=== PATIENT | female | born 1985 | race Caucasian/White ===

== ENCOUNTER → 2022-03-13 08:04 | Outpatient (CLI) | payer OTHER, MEDICAID, SELFPAY ==
[2022-03-13 09:26] LABS: Add Manual Diff / Slide Review NO; Basophils Absolute Auto 0 /uL (0-100); Basophils Percent Auto 0.8 % (0-2); Eosinophils Absolute Auto 500 /uL (0-450); Eosinophils Percent Auto 8.2 % (2-4); Hematocrit 36.6 % (36-46); Hemoglobin 12.5 g/dL (12.0-16.0); Lymphocytes Absolute Auto 1700 /uL (1100-4500); Lymphocytes Percent Auto 29.8 % (25-40); Mean Corpuscular HGB Conc 34.3 % (30-36); Mean Corpuscular Hemoglobin 30.2 PG (26-34); Monocytes Absolute Auto 300 /uL (0-900); Monocytes Percent Auto 4.7 % (3-14); Neutrophils Absolute Auto 3300 /uL (1500-7000); Neutrophils Percent Auto 56.5 % (50-75); Platelet Count 223 X10^3/uL (150-400); Red Blood Cell Count 4.15 X10^6/uL (4.0-5.2); White Blood Cell Count 5.8 X10^3/uL (4.5-11.0)
[2022-03-13 09:48] LABS: Alanine Aminotransferase 20 IU/L (<35); Albumin 4.2 g/dL (3.5-5.0); Albumin Globulin Ratio 1.6 (1.0-2.8); Alkaline Phosphatase 45 U/L (38-126); Aspartate Aminotransferase 27 IU/L (14-36); BUN Creatinine Ratio 14.9 (6-22); Bilirubin Total 0.6 mg/dL (0.2-1.3); Blood Urea Nitrogen 11 mg/dL (7-17); Carbon Dioxide 28 mmol/L (22-32); Chloride 102 mmol/L (98-107); Cholesterol 162 mg/dL (140-199); Estimated Glomerular Filt Rate > 60 mL/min (>60); Globulin 2.6 g/dL (1.7-4.1); Glucose 90 mg/dL (70-100); HDL Cholesterol 71 mg/dL (40-60); HEMOLYSIS < 15 (0-50); LDL Cholesterol Calculated 78 mg/dL (<100); Potassium 3.6 mmol/L (3.4-5.1); Sodium 140 mmol/L (137-145); Total Protein 6.8 g/dL (6.3-8.2); Triglycerides 66 mg/dL (35-150)
[2022-03-13 10:05] LABS: Progesterone, Total 1.04 ng/mL
[2022-03-13 10:06] LABS: Prolactin 26.8 ng/mL (3.0-18.6)
[2022-03-13 10:21] LABS: Estradiol, Total 233.3 pg/mL; Thyroid Stimulating Hormone 2.34 uIU/mL (0.47-4.68)
[2022-03-13 10:24] LABS: Ferritin 20 ng/mL (6-137)
== END ==
PROVIDERS: PCP Naturopath; Referring Provider Naturopath; Visit Provider Naturopath
DX: Z00.00 Encounter for general adult medical examination without abnormal findings (principal); N92.6 Irregular menstruation, unspecified; R53.83 Other fatigue
CPT/HCPCS: 36415; 80053; 80061; 82627; 82670; 82728; 84144; 84146; 84443; 85025

== ENCOUNTER → 2022-07-02 07:49 | Outpatient (CLI) | payer OTHER, MEDICAID, SELFPAY ==
[2022-07-02 09:21] LABS: Add Manual Diff / Slide Review NO; Basophils Absolute Auto 100 /uL (0-100); Eosinophils Absolute Auto 500 /uL (0-450); Eosinophils Percent Auto 8.5 % (2-4); Hematocrit 39.6 % (36-46); Hemoglobin 13.5 g/dL (12.0-16.0); Lymphocytes Absolute Auto 2300 /uL (1100-4500); Lymphocytes Percent Auto 41.3 % (25-40); Mean Corpuscular Hemoglobin 29.7 PG (26-34); Mean Corpuscular Volume 87.3 fL (80-100); Monocytes Absolute Auto 400 /uL (0-900); Monocytes Percent Auto 7.9 % (3-14); Neutrophils Absolute Auto 2300 /uL (1500-7000); Neutrophils Percent Auto 41.3 % (50-75); Platelet Count 206 X10^3/uL (150-400); Red Blood Cell Count 4.53 X10^6/uL (4.0-5.2); Red Cell Distribution Width 12.8 % (11.6-14.8); White Blood Cell Count 5.7 X10^3/uL (4.5-11.0)
[2022-07-02 09:47] LABS: Alanine Aminotransferase 18 IU/L (<35); Albumin 4.2 g/dL (3.5-5.0); Albumin Globulin Ratio 1.6 (1.0-2.8); Alkaline Phosphatase 45 U/L (38-126); Aspartate Aminotransferase 25 IU/L (14-36); BUN Creatinine Ratio 19.4 (6-22); Bilirubin Total 0.7 mg/dL (0.2-1.3); Blood Urea Nitrogen 13 mg/dL (7-17); Calcium 9.2 mg/dL (8.4-10.2); Carbon Dioxide 26 mmol/L (22-32); Chloride 104 mmol/L (98-107); Estimated Glomerular Filt Rate > 60 mL/min (>60); Globulin 2.7 g/dL (1.7-4.1); Glucose 94 mg/dL (70-100); HEMOLYSIS < 15 (0-50); Potassium 4.3 mmol/L (3.4-5.1); Sodium 139 mmol/L (137-145); Total Protein 6.9 g/dL (6.3-8.2)
[2022-07-02 10:00] LABS: Free T3, Triiodothyronine Free 3.64 pg/mL (2.77-5.27); Free T4, Direct Thyroxine 1.11 ng/dL (0.78-2.19); Prolactin 30.9 ng/mL (3.0-18.6)
[2022-07-02 10:12] LABS: Estradiol, Total 130.5 pg/mL
[2022-07-02 10:13] LABS: Cortisol AM (Before 10AM) 14.3 ug/dL (4.46-22.7)
[2022-07-02 10:14] LABS: Thyroid Stimulating Hormone 2.17 uIU/mL (0.47-4.68)
[2022-07-02 10:17] LABS: Ferritin 21 ng/mL (6-137)
== END ==
PROVIDERS: PCP Naturopath; Referring Provider Naturopath; Visit Provider Naturopath
DX: N92.6 Irregular menstruation, unspecified (principal); R53.83 Other fatigue; E22.1 Hyperprolactinemia
CPT/HCPCS: 36415; 80053; 82533; 82627; 82670; 82728; 84146; 84439; 84443; 84481; 85025

== ENCOUNTER → 2023-01-25 09:15 | Outpatient (CLI) | payer OTHER, MEDICAID, SELFPAY ==
[2023-01-25 11:25] LABS: Add Manual Diff / Slide Review NO; Basophils Absolute Auto 0 /uL (0-100); Basophils Percent Auto 0.9 % (0-2); Eosinophils Absolute Auto 400 /uL (0-450); Eosinophils Percent Auto 6.9 % (2-4); Hematocrit 41.2 % (36-46); Hemoglobin 13.9 g/dL (12.0-16.0); Lymphocytes Absolute Auto 1700 /uL (1100-4500); Lymphocytes Percent Auto 32.4 % (25-40); Mean Corpuscular HGB Conc 33.7 % (30-36); Mean Corpuscular Hemoglobin 29.8 PG (26-34); Mean Corpuscular Volume 88.4 fL (80-100); Monocytes Absolute Auto 400 /uL (0-900); Monocytes Percent Auto 7.6 % (3-14); Neutrophils Absolute Auto 2700 /uL (1500-7000); Neutrophils Percent Auto 52.2 % (50-75); Platelet Count 218 X10^3/uL (150-400); Red Blood Cell Count 4.67 X10^6/uL (4.0-5.2); Red Cell Distribution Width 12.9 % (11.6-14.8); White Blood Cell Count 5.2 X10^3/uL (4.5-11.0)
[2023-01-25 11:32] LABS: Alanine Aminotransferase 36 IU/L (<35); Albumin 4.7 g/dL (3.5-5.0); Albumin Globulin Ratio 1.4 (1.0-2.8); Alkaline Phosphatase 49 U/L (38-126); Aspartate Aminotransferase 39 IU/L (14-36); BUN Creatinine Ratio 19.1 (6-22); Bilirubin Total 0.5 mg/dL (0.2-1.3); Blood Urea Nitrogen 13 mg/dL (7-17); Calcium 9.4 mg/dL (8.4-10.2); Carbon Dioxide 26 mmol/L (22-32); Chloride 102 mmol/L (98-107); Estimated Glomerular Filt Rate > 60 mL/min (>60); Globulin 3.3 g/dL (1.7-4.1); Glucose 97 mg/dL (70-100); HEMOLYSIS < 15 (0-50); Potassium 3.9 mmol/L (3.4-5.1); Sodium 138 mmol/L (137-145)
[2023-01-25 11:44] LABS: Prolactin 13.3 ng/mL (3.0-18.6)
[2023-01-25 11:59] LABS: Estradiol, Total 106.2 pg/mL
[2023-01-25 12:02] LABS: Ferritin 27 ng/mL (6-137)
[2023-01-25 12:21] LABS: Thyroid Stimulating Hormone 1.01 uIU/mL (0.47-4.68)
== END ==
PROVIDERS: PCP Naturopath; Referring Provider Naturopath; Visit Provider Naturopath
DX: Z00.00 Encounter for general adult medical examination without abnormal findings (principal); N92.6 Irregular menstruation, unspecified; E22.1 Hyperprolactinemia; R53.83 Other fatigue
CPT/HCPCS: 36415; 80053; 82627; 82670; 82728; 84144; 84146; 84443; 85025

== ENCOUNTER → 2023-09-21 15:57 | Outpatient (CLI) | payer OTHER, MEDICAID, SELFPAY ==
--- NOTE | 2023-09-21 | DI.MG.S_ITS ---
BILATERAL DIGITAL SCREENING MAMMOGRAM 3D/2D WITH CAD: 09/21/2023 CLINICAL: Baseline exam. Routine screening. No prior exams were available for comparison. Both breasts are heterogeneously dense, which may obscure small masses (category c / 51-75% glandular tissue). Current study was also evaluated with a Computer Aided Detection (CAD) system. There is an oval asymmetry with an indistinct and circumscribed margin in the right breast anterior depth central to the nipple seen on the craniocaudal view only. There also is a round asymmetry with a circumscribed margin in the right breast middle depth medial region seen on the craniocaudal view only. There is an oval asymmetry with an indistinct and circumscribed margin in the left breast at 1 o'clock middle depth. No other significant masses or calcifications are seen in either breast. IMPRESSION: INCOMPLETE: NEEDS ADDITIONAL IMAGING EVALUATION The oval asymmetry in the right breast anterior depth central to the nipple seen on the craniocaudal view only is indeterminate. Additional views with possible ultrasound are recommended. The round asymmetry in the right breast middle depth medial region seen on the craniocaudal view only most likely is a cyst and is indeterminate. Additional views with possible ultrasound are recommended. The oval asymmetry in the left breast at 1 o'clock middle depth is indeterminate. Additional views with possible ultrasound are recommended. Based on the Tyrer Cuzick model (a risk assessment model) the patient's lifetime risk is 13.9% and her 10 year risk is 1.7%. According to the ACR, ACS, and NCCN guidelines, an annual breast MRI exam along with mammogram is recommended if the patient's lifetime risk is 20% or greater. This exam was interpreted at Station ID: [id number]. NOTE: For mammograms, a report in lay terms will be sent to the patient. Approximately 15% of breast malignancies will not be visualized mammographically. In the management of a palpable breast mass, a negative mammogram must not discourage biopsy of a clinically suspicious lesion. Electronically Signed By: Arpita mathew/husam:09/22/2023 13:27:54 letter sent: Additional Imaging Needed ACR BI-RADS Category 0: Incomplete 3340F
== END ==
LOC: MAMMO 15:57
PROVIDERS: PCP Naturopath; Referring Provider Naturopath; Visit Provider Naturopath
DX: Z12.31 Encounter for screening mammogram for malignant neoplasm of breast (principal); R92.333 Mammographic heterogeneous density, bilateral breasts
CPT/HCPCS: 77063; 77067

== ENCOUNTER → 2023-10-14 08:45 | Outpatient (CLI) | payer OTHER, MEDICAID, SELFPAY ==
--- NOTE | 2023-10-14 08:46 | DI.US.S_ITS ---
LIMITED ULTRASOUND OF RIGHT BREAST: 10/14/2023 CLINICAL: Patient returns today to evaluate focal asymmetries in the right breast. Comparison is made to exams dated: 10/14/2023 mammogram and 09/21/2023 mammogram - [facility]. Real-time ultrasound of the right breast 2-4 o'clock, and retroareolar regions was performed. Schwartz scale images of the real-time examination were reviewed. There is a benign 0.7 cm oval cyst in the right breast at 2 o'clock anterior depth 1 cm from the nipple. This correlates with mammography findings. There also is a benign 0.7 cm cyst in the right breast at 4 o'clock middle depth. This correlates with mammography findings. IMPRESSION: BENIGN There is no sonographic evidence of malignancy. The 0.7 cm oval cyst in the right breast at 2 o'clock anterior depth is benign. The 0.7 cm cyst in the right breast at 4 o'clock middle depth is benign. Return to annual mammogram is recommended. Due to the patient's elevated lifetime risk and dense breast tissue, consider supplemental MRI screening also. This exam was interpreted at Station ID: [id number]. Electronically Signed By: Bryan Gunn M.D. lc/:10/14/2023 09:47:25 letter sent: Normal Exam Ultrasound BI-RADS: 2 Benign
--- NOTE | 2023-10-14 08:46 | DI.MG.S_ITS ---
BILATERAL DIGITAL DIAGNOSTIC MAMMOGRAM 3D/2D: 10/14/2023 CLINICAL: Additional evaluation requested from prior study. Comparison is made to exam dated: 09/21/2023 mammogram - [facility]. Both breasts are heterogeneously dense, which may obscure small masses (category c / 51-75% glandular tissue). There is an oval asymmetry with a circumscribed margin in the right breast anterior depth central to the nipple seen on the craniocaudal view only. This is seen in additional views. There also is a round asymmetry with a circumscribed margin in the right breast middle depth medial region seen on the craniocaudal view only. There is an oval asymmetry in the left breast at 1 o'clock middle depth. No other significant masses or calcifications are seen in either breast. IMPRESSION: INCOMPLETE: NEEDS ADDITIONAL IMAGING EVALUATION The oval asymmetry in the right breast anterior depth central to the nipple seen on the craniocaudal view only is indeterminate. An ultrasound is recommended. The round asymmetry in the right breast middle depth medial region seen on the craniocaudal view only is indeterminate. An ultrasound is recommended. The oval asymmetry in the left breast at 1 o'clock middle depth is indeterminate. An ultrasound is recommended. Based on Tyrer-Cuzick model (a risk assessment model), the patient's lifetime risk is 20.4% and her 10 year risk is 2.7%. If a patient has an elevated risk, a more comprehensive evaluation should be considered and/or a referral to a genetic counselor. The [place] [employer], [place] [employer], and NCCN Guidelines advise the consideration of Breast MRI as an adjunct to screening mammography in patients whose Lifetime risk to develop breast cancer is 20% or higher. This exam was interpreted at Station ID: [id number]. NOTE: For mammograms, a report in lay terms will be sent to the patient. Approximately 15% of breast malignancies will not be visualized mammographically. In the management of a palpable breast mass, a negative mammogram must not discourage biopsy of a clinically suspicious lesion. Electronically Signed By: Bryan Gunn M.D. /:10/14/2023 09:43:17 ACR BI-RADS Category 0: Incomplete 3340F
--- NOTE | 2023-10-14 08:46 | DI.US.S_ITS ---
LIMITED ULTRASOUND OF LEFT BREAST: 10/14/2023 CLINICAL: Patient returns today to evaluate a focal asymmetry in the left breast. Comparison is made to exams dated: 10/14/2023 mammogram and 09/21/2023 mammogram - [facility]. Real-time ultrasound of the left breast 2 o'clock region was performed. Schwartz scale images of the real-time examination were reviewed. There is a benign 0.6 cm oval cyst in the left breast at 2 o'clock middle depth 3 cm from the nipple. This correlates with mammography findings. IMPRESSION: BENIGN There is no sonographic evidence of malignancy. The 0.6 cm oval cyst in the left breast is benign. This exam was interpreted at Station ID: [id number]. Electronically Signed By: Bryan Gunn M.D. lc/:10/14/2023 09:44:43 Ultrasound BI-RADS: 2 Benign
== END ==
PROVIDERS: PCP Naturopath; Referring Provider Naturopath; Visit Provider Naturopath
DX: R92.8 Other abnormal and inconclusive findings on diagnostic imaging of breast (principal); R92.333 Mammographic heterogeneous density, bilateral breasts; N60.02 Solitary cyst of left breast; N60.01 Solitary cyst of right breast
CPT/HCPCS: 76642; 77066; G0279

== ENCOUNTER → 2024-02-08 10:01 | Outpatient (CLI) | payer OTHER, MEDICAID, SELFPAY ==
[2024-02-08 10:33] LABS: Add Manual Diff / Slide Review NO; Basophils Absolute Auto 0 /uL (0-100); Basophils Percent Auto 0.9 % (0-2); Eosinophils Absolute Auto 300 /uL (0-450); Eosinophils Percent Auto 6.3 % (2-4); Hematocrit 37.9 % (36-46); Hemoglobin 12.8 g/dL (12.0-16.0); Lymphocytes Absolute Auto 1800 /uL (1100-4500); Lymphocytes Percent Auto 35.6 % (25-40); Mean Corpuscular HGB Conc 33.7 % (30-36); Mean Corpuscular Hemoglobin 29.6 PG (26-34); Mean Corpuscular Volume 87.8 fL (80-100); Monocytes Absolute Auto 400 /uL (0-900); Monocytes Percent Auto 7.4 % (3-14); Neutrophils Absolute Auto 2500 /uL (1500-7000); Neutrophils Percent Auto 49.8 % (50-75); Platelet Count 217 X10^3/uL (150-400); Red Blood Cell Count 4.32 X10^6/uL (4.0-5.2); Red Cell Distribution Width 12.8 % (11.6-14.8)
[2024-02-08 10:46] LABS: Alanine Aminotransferase 18 IU/L (<35); Albumin 4.2 g/dL (3.5-5.0); Albumin Globulin Ratio 1.6 (1.0-2.8); Alkaline Phosphatase 48 U/L (38-126); Aspartate Aminotransferase 29 IU/L (14-36); BUN Creatinine Ratio 21.2 (6-22); Bilirubin Total 0.6 mg/dL (0.2-1.3); Blood Urea Nitrogen 14 mg/dL (7-17); Calcium 9.3 mg/dL (8.4-10.2); Carbon Dioxide 24 mmol/L (22-32); Chloride 107 mmol/L (98-107); Cholesterol 147 mg/dL (140-199); Estimated Glomerular Filt Rate > 60 mL/min (>60); Globulin 2.7 g/dL (1.7-4.1); Glucose 99 mg/dL (70-100); HDL Cholesterol 77 mg/dL (40-60); LDL Cholesterol Calculated 61 mg/dL (<100); Potassium 3.9 mmol/L (3.4-5.1); Sodium 139 mmol/L (137-145); Total Protein 6.9 g/dL (6.3-8.2); Triglycerides 45 mg/dL (35-150)
[2024-02-08 10:51] LABS: HEMOLYSIS < 15 (0-50)
[2024-02-08 11:20] LABS: Ferritin 17 ng/mL (6-137)
[2024-02-08 13:07] LABS: HEMOLYSIS < 15 (0-50); Iron 98 ug/dL (37-170)
[2024-02-08 13:18] LABS: Prolactin 20.1 ng/mL (3.0-18.6)
[2024-02-08 13:25] LABS: Percent Iron Saturation 28 % (15-50); Total Iron Binding Capacity 347 ug/dL (265-497); Transferrin 266 mg/dL (206-381)
[2024-02-08 13:49] LABS: Thyroid Stimulating Hormone 2.14 uIU/mL (0.47-4.68)
== END ==
PROVIDERS: PCP Naturopath; Referring Provider Naturopath; Visit Provider Naturopath
DX: Z00.00 Encounter for general adult medical examination without abnormal findings (principal); N92.6 Irregular menstruation, unspecified; E22.1 Hyperprolactinemia; R53.83 Other fatigue; D64.9 Anemia, unspecified
CPT/HCPCS: 36415; 80053; 80061; 82728; 83540; 83550; 84146; 84443; 85025